=== PATIENT | female | born 1970 | race Two or more races ===

== ENCOUNTER → 2017-12-05 | Outpatient (CLI) | payer OTHER | LOC: EEVIPCON 08:09 → BMCIMAGING 08:09 | DX: Z12.31 Encounter for screening mammogram for malignant neoplasm of breast (principal) ==

== ENCOUNTER → 2017-12-14 | Outpatient (CLI) | payer OTHER | LOC: BMCIMAGING 10:44 | DX: D18.03 Hemangioma of intra-abdominal structures (principal); R92.8 Other abnormal and inconclusive findings on diagnostic imaging of breast; N60.01 Solitary cyst of right breast ==

== ENCOUNTER → 2017-12-14 | Outpatient (CLI) | payer OTHER | LOC: EEVIPCON 10:46 → BMCIMAGING 10:46 | DX: N60.01 Solitary cyst of right breast (principal) ==

== ENCOUNTER → 2018-06-19 | Outpatient (CLI) | payer OTHER | LOC: FIMAGING 12:53 | DX: N60.01 Solitary cyst of right breast (principal) ==